=== PATIENT | male | born 1945 | race Caucasian/White ===

== ENCOUNTER 2024-03-16 09:16 | Emergency (ER) | payer BC, MEDICAID ==
[~2024-03-16] VITALS: Ht 170.2 cm; Wt 75.0 kg
[2024-03-16 09:21] VITALS: BP 0/0; PULSE 0; RESP 0; O2SAT 90
== END 2024-03-16 09:40 ==
LOC: ER 09:34
DX: I46.9 Cardiac arrest, cause unspecified (principal); I10 Essential (primary) hypertension
CPT/HCPCS: 92950; 99291